=== PATIENT | female | born 1945 | race Caucasian/White ===

== ENCOUNTER 2016-08-30 16:25 | Emergency (ER) | payer OTHER ==
[2016-08-30 17:26] VITALS: BP 153/82
== END 2016-08-30 17:26 | disposition home or self-care (01) ==
LOC: ED 16:25
DX: R04.0 Epistaxis (principal)

== ENCOUNTER 2016-08-31 22:17 | Emergency (ER) | payer OTHER ==
[2016-09-01 01:21] LABS: BASOPHIL % 0.6 % (0-2); PLATELET COUNT 175 x10^3mcL (130-400); RED CELL DISTRIBUTION WIDTH 13.1 % (11.5-14.5)
[2016-09-01 02:05] VITALS: BP 134/77
== END 2016-09-01 02:05 | disposition home or self-care (01) ==
LOC: ED 22:17
PROVIDERS: Emergency Medicine
DX: R04.0 Epistaxis (principal); J32.1 Chronic frontal sinusitis; M19.90 Unspecified osteoarthritis, unspecified site